=== PATIENT | female | born 1980 | race American Indian/Alaskan Native ===

== ENCOUNTER 2020-02-17 03:15 | Emergency (ER) | payer BC ==
[2020-02-17 03:30] VITALS: BP 138/72
[2020-02-17] MEDS ORDERED: methylPREDNISolone Sod Succinate 125 MG/2 ML INJ ONE (03:41)
[2020-02-17] MEDS ORDERED: diphenhydrAMINE 50 MG/ML VIAL ONE (03:41)
[2020-02-17] MEDS ORDERED: FAMOTIDINE 20 MG/2 ML INJ IV ONE (03:42)
[2020-02-17] MEDS ORDERED: SODIUM CHLORIDE 0.9% 1000 ML 1,000 ML ONE (03:51)
[2020-02-17] MEDS ORDERED: methylPREDNISolone Sod Succinate 125 MG/2 ML INJ IV ONE (03:53)
[2020-02-17] MEDS ORDERED: SODIUM CHLORIDE 0.9% 1000 ML 1,000 ML IV ONE (03:53)
[2020-02-17] MEDS ORDERED: FAMOTIDINE 20 MG/2 ML INJ IV STA (03:53)
[2020-02-17] MEDS ORDERED: diphenhydrAMINE 50 MG/ML VIAL IV STA (03:53)
--- NOTE | 2020-02-17 04:09 | Emergency Department Report ---
HPI - General Chief Complaint: Allergic Reaction Time Seen by Provider: 02/17/20 03:48 ED Past Medical Hx - Past Medical History Previous Medical History?: No - Surgical History Past Surgical History?: Yes Additional Surgical History: Right Falopian tube and right ovary removed - Social History Smoking Status: Never Smoker Substance Use Type: None ED Review of Systems ROS: Stated complaint: ALLERGIC REACTION Other details as noted in HPI Physical Exam - Physical Exam Vital Signs: Vital Signs 02/17/20 03:19 Temperature 98.1 F Pulse Rate 76 Respiratory 14 Rate Blood Pressure 138/72 O2 Sat by Pulse 96 Oximetry ED Course Vital Signs 02/17/20 03:19 Temperature 98.1 F Pulse Rate 76 Respiratory 14 Rate Blood Pressure 138/72 O2 Sat by Pulse 96 Oximetry Critical care attestation.: If time is entered above; I have spent that time in minutes in the direct care of this critically ill patient, excluding procedure time. ED Disposition Condition: Stable
--- NOTE | 2020-02-17 04:53 | Emergency Department Report ---
ED Allergic Reaction HPI - General Chief complaint: Allergic Reaction Stated complaint: ALLERGIC REACTION Time Seen by Provider: 02/17/20 03:48 Source: patient Mode of arrival: Ambulatory Limitations: No Limitations - History of Present Illness MD Complaint: allergic reaction, facial swelling -: Gradual, hour(s), This evening Exposure: food (4 hours after eating dinner and started to sneeze has a physical itching and tingling to the lips and noticed some swelling to her eyes she came to emergency department for further evaluation treatment options she was unsure what the exact culprit was to initiate the symptoms) Severity: moderate Treatment Prior to Arrival: none - Related Data Previous Rx's Medication Instructions Recorded Last Taken Type Famotidine [Pepcid] 40 mg PO DAILY #14 tablet 02/17/20 Unknown Rx hydrOXYzine HCL [Atarax] 25 mg PO Q6HR PRN #20 tablet 02/17/20 Unknown Rx predniSONE [Deltasone] 50 mg PO QDAY #5 tab 02/17/20 Unknown Rx Allergies Allergy/AdvReac Type Severity Reaction Status Date / Time promethazine [From Phenergan] Allergy Hives Verified 02/17/20 03:19 ED Review of Systems ROS: Stated complaint: ALLERGIC REACTION Other details as noted in HPI Comment: All other systems reviewed and negative ED Past Medical Hx - Past Medical History Previous Medical History?: No - Surgical History Past Surgical History?: Yes Additional Surgical History: Right Falopian tube and right ovary removed - Social History Smoking Status: Never Smoker Substance Use Type: None - Medications Home Medications: Home Medications Medication Instructions Recorded Confirmed Last Taken Type Famotidine [Pepcid] 40 mg PO DAILY #14 tablet 02/17/20 Unknown Rx hydrOXYzine HCL [Atarax] 25 mg PO Q6HR PRN #20 tablet 02/17/20 Unknown Rx predniSONE [Deltasone] 50 mg PO QDAY #5 tab 02/17/20 Unknown Rx ED Physical Exam - General Limitations: No Limitations General appearance: alert, in no apparent distress - Head Head exam: Present: atraumatic, normocephalic, other (Some facial swelling to the left face and. Orbital region some mild swelling to the left lower lip. Airway patent tongue and uvula midline no drooling) - Eye Eye exam: Present: normal appearance, PERRL. Absent: scleral icterus, conjunctival injection, periorbital swelling, periorbital tenderness Pupils: Present: normal accommodation. Absent: unequal, mydriatic - ENT ENT exam: Present: normal exam, normal orophraynx, mucous membranes moist - Neck Neck exam: Present: normal inspection, full ROM. Absent: lymphadenopathy, thyromegaly - Respiratory Respiratory exam: Present: normal lung sounds bilaterally. Absent: respiratory distress, wheezes, rhonchi, stridor, chest wall tenderness, accessory muscle use, decreased breath sounds - Cardiovascular Cardiovascular Exam: Present: regular rate, normal rhythm. Absent: systolic murmur, diastolic murmur, rubs, gallop - GI/Abdominal GI/Abdominal exam: Present: soft, normal bowel sounds - Extremities Exam Extremities exam: Present: normal inspection, full ROM, normal capillary refill - Back Exam Back exam: Present: normal inspection. Absent: CVA tenderness (R), CVA tenderness (L) - Neurological Exam Neurological exam: Present: alert, oriented X3, CN II-XII intact, normal gait - Psychiatric Psychiatric exam: Present: normal affect, normal mood. Absent: anxious, manic - Skin Skin exam: Present: warm, dry, intact, normal color. Absent: rash, cyanosis, diaphoretic ED Course Vital Signs 02/17/20 03:19 Temperature 98.1 F Pulse Rate 76 Respiratory 14 Rate Blood Pressure 138/72 O2 Sat by Pulse 96 Oximetry - Reevaluation(s) Reevaluation #1: 02/17/20 06:30 No wheezing no odynophagia no dysphasia swelling still present to the left and left base airway patent no distress Critical care attestation.: If time is entered above; I have spent that time in minutes in the direct care of this critically ill patient, excluding procedure time. ED Disposition Clinical Impression: Allergic reaction Disposition: DC-01 TO HOME OR SELFCARE Is pt being admited?: No Does the pt Need Aspirin: No Condition: Stable Instructions: Urticaria (ED), Food Allergy (ED), Anaphylaxis (ED) Prescriptions: hydrOXYzine HCL [Atarax] 25 mg PO Q6HR PRN #20 tablet PRN Reason: Itching predniSONE [Deltasone] 50 mg PO QDAY #5 tab Famotidine [Pepcid] 40 mg PO DAILY #14 tablet Referrals: [facility] [Provider Group] - 24 Hours (Please follow-up with your primary care provider or [facility]
== END 2020-02-17 06:46 | disposition home or self-care (01) ==
LOC: ED 03:15
DX: T78.40XA Allergy, unspecified, initial encounter (principal); R22.0 Localized swelling, mass and lump, head; R20.2 Paresthesia of skin; Z98.890 Other specified postprocedural states; Z79.899 Other long term (current) drug therapy; Z88.8 Allergy status to other drugs, medicaments and biological substances; X58.XXXA Exposure to other specified factors, initial encounter
CPT/HCPCS: 96361; 96374; 96375; 99282; J1200; J2930; J7030